=== PATIENT | male | born 1975 | race Caucasian/White ===

== ENCOUNTER 2019-04-25 08:06 | Day surgery (SDC) | payer OTHER ==
[~2019-04-25 08:06] MED LIST: BUPIVACAINE-EPI 0.25%-1:200000 MPF 30 ML VIAL. INJ ONE
[2019-04-25] MEDS ORDERED: IV RINGERS,LACTATED 1000ML 1,000 ML IV SCH (08:45)
[2019-04-25] MEDS ORDERED: IBUP-1060 PO (08:55)
[2019-04-25] MEDS ORDERED: OXYC1TAB19 PO (08:55)
[2019-04-25] MEDS ORDERED: ceFAZolin SODIUM 3 GM in IV DEXTROSE 5% 100ML 100 ML IV PRN (09:00)
[2019-04-25] MEDS ORDERED: SUCCINYLCHOLINE 200 MG/10 ML VIAL. ONE (09:31)
[2019-04-25] MEDS ORDERED: fentaNYL PF VIAL 100 MCG/2 ML VIAL ONE ×2 (09:31→12:47)
[2019-04-25] MEDS ORDERED: LIDOCAINE 2% PF 5 ML VIAL. ONE (09:31)
[2019-04-25] MEDS ORDERED: KETAMINE HCL IN NACL, ISO-OSM 50 MG/5 ML SYRINGE ONE (09:31)
[2019-04-25] MEDS ORDERED: FAMOTIDINE 20 MG/2 ML VIAL ONE (09:31)
[2019-04-25] MEDS ORDERED: ONDANSETRON PF 4 MG/2 ML VIAL. ONE (09:31)
[2019-04-25] MEDS ORDERED: MIDAZOLAM HCL/PF 2 MG/2 ML VIAL. ONE (09:31)
[2019-04-25] MEDS ORDERED: KETOROLAC 30 MG/ML VIAL. ONE (09:31)
[2019-04-25] MEDS ORDERED: PROPOFOL 20 ML IV ONE (09:31)
[2019-04-25] MEDS ORDERED: EPINEPHrine VIAL 30 MG/30 ML VIAL ONE (10:02)
[2019-04-25] MEDS ORDERED: BUPIVACAINE MPF 0.25% 30 ML VIAL. ONE (10:02)
[2019-04-25] MEDS ORDERED: BUPIVACAINE MPF 0.5% 30 ML VIAL. ONE (10:22)
[2019-04-25] MEDS ORDERED: PHENYLEPHRINE in 0.9% NACL PF 1 MG/10 ML SYRINGE. IV ONE (11:01)
--- NOTE | 2019-04-25 11:56 | HP ---
ADMIT DATE: 04/25/2019 PREOPERATIVE HISTORY AND PHYSICAL CHIEF COMPLAINT: Right elbow and arm contusion. HISTORY OF PRESENT ILLNESS: The patient had an EMG that shows carpal and cubital tunnel syndrome after a right elbow contusion and imaging shows a loose body in his elbow. He continues to flex the elbow as much as the other side. It is catching, very numb, tingling, with severe pain down into all the fingers. He is taking Percocet and Flexeril, but they only take the edge off his pain. PAST MEDICAL HISTORY: Unchanged. ALLERGIES: No known drug allergies or medicine sensitivities. REVIEW OF SYSTEMS: Negative for any chest pain, shortness of breath, or other constitutional symptoms. PHYSICAL EXAMINATION: VITAL SIGNS: Per admission sheet. HEENT: Atraumatic, normocephalic. HEART: Regular rate and rhythm. LUNGS: Clear to auscultation bilaterally. ABDOMEN: Benign. EXTREMITIES: Examination of the right elbow reveals limitations in extreme extension or flexion of the right elbow. He continues to have some swelling and decreased sensation with a positive Tinel sign over the cubital tunnel as well as positive Phalen and compression test with median nerve compression at the carpal tunnel. He also has some decreased sensation over the superficial radial nerve distribution and paresthesias in all of his fingers. Wrist extension is unaffected. Motor function is intact to profundus, superficialis, and extensor tendons. No instability noted at the elbow. He has normal examination of the contralateral elbow, bilateral shoulders, and wrists and aside from the paresthesias in the right hand, intact motor function, distal pulses, sensation, reflexes, and skin in both upper extremities throughout. IMPRESSION: 1. Crush injury, right arm. 2. Loose body, right elbow. 3. Ongoing paresthesias, right upper extremity, with documented carpal and cubital tunnel syndrome. TREATMENT PLAN: I went over with him the plan of elbow arthroscopy to evaluate for the loose body or other intraarticular damage and the plan for release of his ulnar nerve at the elbow at the cubital tunnel and median nerve at the carpal tunnel at the wrist. We talked about the possibility of nerve or blood vessel damage and the fact that his recovery may be slow or incomplete with the pressure on the nerves that we are just taking the pressure off the nerves with the surgery. There is likewise a possibility of any other surgery with nerve or blood vessel damage, infection, continued stiffness, medical or other anesthetic complications among others. He wishes to proceed with surgical evaluation and treatment, which will occur on an outpatient basis today. MARC BALDWIN MD DR: HUSAM/jahaira JOB#: [id number] / [id number]
[2019-04-25] MEDS ORDERED: DESFLURANE > 120 MINUTES IH ONE (12:07)
[2019-04-25] MEDS ORDERED: diphenhydrAMINE 50 MG/ML VIAL IV PRN (12:45)
[2019-04-25] MEDS ORDERED: MORPHINE SULFATE 4 MG/ML VIAL. IV PRN (12:45)
[2019-04-25] MEDS ORDERED: PROCHLORPERAZINE 10 MG/2 ML VIAL. IV PRN (12:45)
[2019-04-25] MEDS ORDERED: ONDANSETRON PF 4 MG/2 ML VIAL. IV PRN (12:45)
[2019-04-25] MEDS ORDERED: HYDROmorphone 2 MG/ML VIAL IV PRN ×2 (12:45)
[2019-04-25] MEDS ORDERED: fentaNYL PF VIAL 100 MCG/2 ML VIAL IV PRN (12:45)
[2019-04-25] MEDS: fentaNYL PF VIAL 100 MCG/2 ML VIAL IV PRN ×2 (12:53→13:00)
[2019-04-25] MEDS: MORPHINE SULFATE 2 MG/ML VIAL. IV PRN ×2 (13:18→13:47)
[2019-04-25] MEDS ORDERED: oxyCODONE/APAP 5/325 1 TAB TABLET PO ONE (13:30)
[2019-04-25] MEDS ORDERED: LABETALOL 20 MG/4 ML DISP.SYRIN. IVP PRN (13:45)
[2019-04-25] MEDS ORDERED: GABA300C18 PO (13:47)
--- NOTE | 2019-04-25 13:51 | DISCH ---
DISCHARGE INSTRUCTIONS Condition on Discharge Condition on Discharge: Stable Activity After Discharge Activity Instructions for Disc: Other, see below (gentle range of motion of elbow wrist and fingers may do fine motor tasks avoiding hard grasp) Weight Bearing Status after Di: As tolerated Diet after Discharge Diet after Discharge: Regular Wound Incision Care Wound/Incision Care: Change dressing (May remove dressing in 3 days may then shower no soaking until sutures removed. Light dressing on elbow inside incision and on base of palm) Community/Resources/Services Services at Discharge: PT EVALUATE & TREAT (prescription provided) Contacting the after DC Call your doctor for: Concerns you may have Follow-Up Follow up with: Dr. Cee 2 weeks at [facility] in [place], phone [phone] MARC CEE MD Apr 25, 2019 13:51
[2019-04-25 14:25] VITALS: BP 162/100
--- NOTE | 2019-04-25 14:26 | PDOC4 ---
Operative Note Operative Note Date of surgery: 04/25/2019 Preoperative diagnosis: Loose body right elbow right cubital and carpal tunnel syndrome from crush injury Postoperative diagnosis: Same with some chondromalacia right elbow Operative procedure: Right cubital and carpal tunnel release, right elbow arthroscopy with debridement and removal cartilaginous loose body Surgeon: Coleman Anesthesia: Gen. Estimated blood loss: 15 mL Complications: None Operative indications: Please see my orthopedic consultation from [facility] for detailed operative indications and note that Mr. Aldrich had sustained a crush injury to his right upper extremity at work he was having some catching in his elbow and x-rays appeared to show a loose body he also had documented EMG findings of significant nerve compression at the cubital and carpal tunnels. I gone over with him the rationale for release of these areas and arthroscopy of the elbow to evaluate any damage and possible removal of loose body the possibility of nerve or blood vessel damage continued pain the fact that the nerves may not recover fully and that the release is basically to keep pressure from exerting further damage and the body would otherwise heal itself. All his questions were answered he agrees to proceed with surgical evaluation and treatment. Operative text: Patient was identified procedure verified patient placed in the supine position on the operative table. After adequate amounts of general anesthesia were administered a tourniquet was placed on the right upper arm and the right upper extremity was prepped and draped in standard sterile fashion. After timeout was performed patient procedure identified and verified the right upper extremity was exsanguinated by Esmarch bandage tourniquet inflated to 350 mm mercury a curvilinear incision was made over the medial elbow dissection carried out to the cubital tunnel and the overlying tissue was released from the intramuscular septum proximally to the cubital tunnel and through its insertion into the flexor musculature. He was noted to have severe compression of the ulnar nerve. Transposition was not obtained as he had no instability attention was then turned to the carpal tunnel where a transverse incision was made just distal to the distal palmar crease transverse carpal ligament was divided under direct visualization sharply and verified to be completely transected proximally and distally and he was noted to have moderate compression of the median nerve no synovitis or tendon abnormalities. The right elbow joint was then insufflated with normal saline solution through the lateral soft spot portal and the elbow joint was entered from a proximal medial portal with the ulnar nerve under direct visualization and avoided. Initially I attempted the use of a small joint arthroscope however his arm was so large it did not actually penetrate the joint adequately for sufficient visualization therefore the large joint arthroscope was used medially and a working portal established laterally. The radial head was noted to have some cartilage irregularity which was debrided back to stable tissue with the small joint shaver no instability was noted of the radiocapitellar joint. The ulnohumeral articulation was noted to have some chondromalacia which was lightly debrided as well. Coronoid cartilage was noted to be intact and 2 small cartilaginous loose bodies were retrieved through the arthroscopic shaver. Synovitis was debrided for adequate visualization and the gutter areas and no additional cartilage damage was noted the joint was drained of arthroscopic fluid portals closed with nylon suture carpal tunnel incision wa s closed with nylon suture in a vertical mattress fashion and the cubital tunnel incision was closed with buried Vicryl suture and nylon suture sterile soft dressings were applied fingers were noted be warm pink find deflation of tourniquet patient was returned to recovery room in stable condition having tolerated procedure well and was noted to have intact motor function and sensa tion to ulnar median and radial distributions in the recovery room before discharge MARC BALDWIN MD Apr 25, 2019 14:26
== END 2019-04-25 14:30 | disposition home or self-care (01) ==
LOC: SURG 08:06
PROVIDERS: ATTEND Orthopaedic Surgery
DX: S50.01XA Contusion of right elbow, initial encounter (principal); G56.01 Carpal tunnel syndrome, right upper limb; G56.21 Lesion of ulnar nerve, right upper limb; M94.221 Chondromalacia, right elbow; M24.021 Loose body in right elbow; X58.XXXA Exposure to other specified factors, initial encounter; Y93.89 Activity, other specified; Y92.89 Other specified places as the place of occurrence of the external cause; Y99.8 Other external cause status
CPT/HCPCS: 29834; 29838; 64718; 64721; A7015; C1713; J0171; J0330; J1885; J2001; J2250; J2270; J2370; J2405; J2704; J3010; J3490